=== PATIENT | female | born 1985 | race Caucasian/White ===

== ENCOUNTER 2019-09-06 11:41 | Emergency (ER) | payer OTHER ==
[2019-09-06] MEDS ORDERED: Oseltamivir 75 MG CAP ONE (12:46)
== END 2019-09-06 13:00 | disposition home or self-care (01) ==
LOC: MADERS 11:41
DX: J10.1 Influenza due to other identified influenza virus with other respiratory manifestations (principal)
CPT/HCPCS: 87804; 99283